=== PATIENT | female | born 1985 | race African-American/Black ===

== ENCOUNTER 2024-05-28 09:37 | Emergency (ER) | payer OTHER, SELFPAY ==
[2024-05-28 09:53] VITALS: BP 139/102
--- NOTE | 2024-05-28 09:54 | ED.GENMED ---
ED Provider Triage
<Venkatesh Pantoja PA-C - Last Filed: 05/28/24 09:56>
-
Patient seen by provider in Triage?: Seen in Triage
Attestation: A medical screening examination has been initiated by a qualified medical provider. Based on the assessment performed at this time, it has been determined that an emergent medical condition may exist and the patient has been informed
that further medical evaluation and possible additional diagnostic testing may be needed.
HPI: 39-year-old female G7, P2 presents the emergency department for evaluation of vaginal bleeding. She developed vaginal bleeding last month in her first trimester and was seen at [facility], per patient had an abnormal
by ultrasound and was given mifepristone intravaginally for abortive therapy. States she had small amount of bleeding and spotting for this next several weeks but over the past 24 hours has had increased bleeding with clots. He states
the bleeding is 'heavy' but is unable to quantify and is not currently using a pad or tampon. No abdominal pain
GENERAL: Alert , in no apparent distress
EYE: No visual abnormalities.
NECK: Trachea midline
ENT: No visible abnormalities.
LUNGS: No acute respiratory distress
NEUROLOGICAL: Alert and oriented
SKIN: Skin intact. No visible changes.
MUSCULOSKELETAL: Moving extremities normally
PSYCH: Normal and appropriate interaction.
A/P: Incomplete miscarriage/retained products of conception. Obtain labs and ultrasound as well as hCG levels
This is a medical evaluation conducted in person to initiate diagnostic evaluation and provide initial therapeutics. Please see further documentation by the treating clinician.
History of Present Illness
<Venkatesh Pantoja PA-C - Last Filed: 05/28/24 09:56>
General
Chief Complaint: Vaginal Bleeding
Time Seen by Provider: 05/28/24 11:16
<Yandel Allison DO - Last Filed: 05/29/24 12:07>
General
Source: patient
History of Present Illness
History of Present Illness:
39-year-old female presents to the emergency room complaining of heavy vaginal bleeding. Patient states that she had a positive test a few weeks ago. She began having some spotting which prompted a visit to the emergency room at
[place]. She had an ultrasound which did not show an intrauterine . She had a follow-up with BOILER TESTING TECHNICIAN at [place] where she was treated with intravaginal medication to promote miscarriage. Patient had some bleeding and some clots after
using that medication. She was continuing to spot up until yesterday when she again developed heavy vaginal bleeding. She was passing clots. This morning bleeding is heavier yet. She has some mild discomfort in her abdomen. Patient is G6, P2
with 2 elective abortions and 2 spontaneous abortions. Patient denies any fever.
Past History
<Venkatesh Pantoja PA-C - Last Filed: 05/28/24 09:56>
Past History
ED Past Medical History: Asthma
ED Past Surgical History: None
Social History
Tobacco: Smoker
Alcohol: None
Drug: None
Personal: Single
Living: with family
Employment: Employed
Phy Exam
<Yandel Allison DO - Last Filed: 05/29/24 12:07>
Physical Exam
Physical Exam:
General: Awake, Alert, Oriented X3. No acute distress.
Vitals: unremarkable
Head: Atraumatic
Eyes: Pupils equal, EOMI
Throat: Airway intact, no exudates
Neck: Trachea midline
Lungs: Clear and equal b/l
Heart: Regular rate, no murmurs
Abd: Soft, Nontender, No pulsatile mass
Neuro: Nonfocal
Skin: Warm, dry, no rash
Extremities: pulses equal b/l, no edema
Course
<Venkatesh Pantoja PA-C - Last Filed: 05/28/24 09:56>
Orders/Labs/Results
Orders:
Orders
05/28/24 09:53
Test Result ONCE
05/28/24 10:01
Beta HCG Quantitative Urgent
Comment: ADD
Complete Blood Count/With Diff Urgent
Comprehensive Metabolic Panel Urgent
HCG, Serum Qualitative Screen Urgent
05/28/24 10:34
Add On- LAB Urgent
Tests Added?: HCG QUANT
05/28/24 11:14
Add On- LAB Urgent
Tests Added?: quantitative hcg
05/28/24 11:40
US Pelvis W Transvag Combined Urgent
Reason For Exam: vag bleeding
05/28/24 12:21
Type+Screen Urgent
BBK Wristband Number:
05/28/24 15:08
ABO2 Routine
BBK Wristband Number:
Associate notified that ABO2 has been ordered: [id number]
Date: 05/28/24
Time: 12:50
Manager Utilization ID: [id number]
miSOPROStol [Cytotec] 600 mcg PO NOW STA
Abnormal Lab Results
05/28/24
10:01
RBC 4.16 L 10^6/uL
(4.20-5.40)
Hct 36.3 L %
(37.0-47.0)
Absolute Monos (auto) 1.0 H 10^3/uL
(0.1-0.6)
Monocytes % 11.5 H %
(1.7-9.3)
Eosinophils % 7.6 H %
(0-6)
Glucose 100 H mg/dl
(70-99)
05/28/24 10:01
05/28/24 10:01
Vital Signs
Initial and Last Documented VS:
Initial Vital Signs
Temp Pulse Resp BP Pulse Ox
98.4 F 98 20 139/102 99
05/28/24 09:53 05/28/24 09:53 05/28/24 09:53 05/28/24 09:53 05/28/24 09:53
Last Documented Vital Signs
Temp Pulse Resp BP Pulse Ox
98.4 F 83 16 114/72 100
05/28/24 09:53 05/28/24 15:12 05/28/24 15:12 05/28/24 15:12 05/28/24 15:12
Olgalt;Yandel Allison, DO - Last Filed: 05/29/24 12:07>
Orders/Labs/Results
Orders:
Orders
05/28/24 09:53
Test Result ONCE
05/28/24 10:01
Beta HCG Quantitative Urgent
Comment: ADD
Complete Blood Count/With Diff Urgent
Comprehensive Metabolic Panel Urgent
HCG, Serum Qualitative Screen Urgent
05/28/24 10:34
Add On- LAB Urgent
Tests Added?: HCG QUANT
05/28/24 11:14
Add On- LAB Urgent
Tests Added?: quantitative hcg
05/28/24 11:40
US Pelvis W Transvag Combined Urgent
Reason For Exam: vag bleeding
05/28/24 12:21
Type+Screen Urgent
BBK Wristband Number:
05/28/24 15:08
ABO2 Routine
BBK Wristband Number:
Associate notified that ABO2 has been ordered: [id number]
Date: 05/28/24
Time: 12:50
Manager Utilization ID: [id number]
miSOPROStol [Cytotec] 600 mcg PO NOW STA
Abnormal Lab Results
05/28/24
10:01
RBC 4.16 L 10^6/uL
(4.20-5.40)
Hct 36.3 L %
(37.0-47.0)
Absolute Monos (auto) 1.0 H 10^3/uL
(0.1-0.6)
Monocytes % 11.5 H %
(1.7-9.3)
Eosinophils % 7.6 H %
(0-6)
Glucose 100 H mg/dl
(70-99)
05/28/24 10:01
05/28/24 10:01
Vital Signs
Initial and Last Documented VS:
Initial Vital Signs
Temp Pulse Resp BP Pulse Ox
98.4 F 98 20 139/102 99
05/28/24 09:53 05/28/24 09:53 05/28/24 09:53 05/28/24 09:53 05/28/24 09:53
Last Documented Vital Signs
Temp Pulse Resp BP Pulse Ox
98.4 F 83 16 114/72 100
05/28/24 09:53 05/28/24 15:12 05/28/24 15:12 05/28/24 15:12 05/28/24 15:12
<Jose Sher, DO - Last Filed: 05/28/24 15:04>
Orders/Labs/Results
Orders:
Orders
05/28/24 09:53
Test Result ONCE
05/28/24 10:01
Beta HCG Quantitative Urgent
Comment: ADD
Complete Blood Count/With Diff Urgent
Comprehensive Metabolic Panel Urgent
HCG, Serum Qualitative Screen Urgent
05/28/24 10:34
Add On- LAB Urgent
Tests Added?: HCG QUANT
05/28/24 11:14
Add On- LAB Urgent
Tests Added?: quantitative hcg
05/28/24 11:40
US Pelvis W Transvag Combined Urgent
Reason For Exam: vag bleeding
05/28/24 12:21
Type+Screen Urgent
BBK Wristband Number:
05/28/24 15:08
ABO2 Routine
BBK Wristband Number:
Associate notified that ABO2 has been ordered: [id number]
Date: 05/28/24
Time: 12:50
Manager Utilization ID: [id number]
miSOPROStol [Cytotec] 600 mcg PO NOW STA
Abnormal Lab Results
05/28/24
10:01
RBC 4.16 L 10^6/uL
(4.20-5.40)
Hct 36.3 L %
(37.0-47.0)
Absolute Monos (auto) 1.0 H 10^3/uL
(0.1-0.6)
Monocytes % 11.5 H %
(1.7-9.3)
Eosinophils % 7.6 H %
(0-6)
Glucose 100 H mg/dl
(70-99)
05/28/24 10:01
05/28/24 10:01
Vital Signs
Initial and Last Documented VS:
Initial Vital Signs
Temp Pulse Resp BP Pulse Ox
98.4 F 98 20 139/102 99
05/28/24 09:53 05/28/24 09:53 05/28/24 09:53 05/28/24 09:53 05/28/24 09:53
Last Documented Vital Signs
Temp Pulse Resp BP Pulse Ox
98.4 F 83 16 114/72 100
05/28/24 09:53 05/28/24 15:12 05/28/24 15:12 05/28/24 15:12 05/28/24 15:12
<Yandel Allison, DO - Last Filed: 05/29/24 12:07>
MDM/Problems Addressed
Differential Diagnosis Includes:
ectopic, incomplete , retained products
MDM/Problems Addressed:
Patient presents with increased vaginal bleeding. Labs show that her quant is still quite elevated at thousand. Ultrasound showed thickened endometrial stripe. Consultation from gynecology obtained. Dr. Glasgow came and evaluated the patient.
Ultimately she used shared decision making and the patient decided to continue medical management. Patient given additional Cytotec and will be discharged home.
<Yandel Allison DO - Last Filed: 05/29/24 12:07>
*Radiology
Radiology exam reviewed: radiology read reviewed
*Pulse Oximetry
Patient hypoxic: no
<Jose Sher DO - Last Filed: 05/28/24 15:04>
*Critical Care Note
Total Time (30-74mins, 75-104mins- exclusive of procedures): Not Applicable
<Jose Sher DO - Last Filed: 05/28/24 15:04>
Update Note
Update Note:
Signout pending BOILER TESTING TECHNICIAN evaluation for retained products seen by multi skilled operator ordered Cytotec will follow-up with her primary multi skilled operator the ER if worsening symptoms
Patient blood type is O+
ED Attending Note
<Venkatesh Pantoja PA-C - Last Filed: 05/28/24 09:56>
-
Portions of this chart may have been created with voice recognition software.� Occasional wrong word or��sound alike� substitutions may have occurred due to the inherent limitations of voice recognition software.
Discharge Plan
Departure
Patient Disposition: Home (Routine Discharge)
Date of Disposition: 05/28/24
Time of Disposition: 15:02
Patient with high blood pressure during this ER visit?: No
Discharge Problem:
Retained products of conception, early
Instructions: Threatened Miscarriage (DC)
Prescriptions:
No Action
lidocaine 30 GM ointment
30 gm topical BID Qty: 1 0RF
Rx Instructions:
apply to area of irritation for 7 days
Referrals:
Sugey Adams DO [Family Provider] - Next open appointment
Activity Restrictions/Additional Instructions:
Follow-up with your multi skilled operator in a week
Interventions
Interventions:
*Risk Screen - Suicide Last Done: 05/28/24 09:53
*General Assessment Last Done: 05/28/24 11:58
*Neglect/Abuse Screening Last Done: 05/28/24 11:58
ED- Fall Risk Assessment Last Done: 05/28/24 15:36
*ED COVID-19 Vaccine History Last Done: 05/28/24 11:58
*Nursing Disposition Last Done: 05/28/24 15:36
ED-Female Genitourinary Assessment Last Done: 05/28/24 12:01
Discharge Date and Time
Discharge Date/Time: 05/28/24 15:37
Print Language: [place] CITIZEN
[2024-05-28 10:15] LABS: % Basophils 0.8 % (0-2); % Eosinophils 7.6 % (0-6); % Immature Granulocytes 0.2 % (0-0.5); % Lymphocytes 30.1 % (20.5-51.1); % Monocytes 11.5 % (1.7-9.3); % Neutrophils 49.8 % (42.2-75.2); Absolute Basophils 0.1 10^3/uL (0-0.2); Absolute Eosinophils 0.7 10^3/uL (0-0.7); Absolute Lymphocytes 2.6 10^3/uL (1.2-3.4); Absolute Neutrophils 4.3 10^3/uL (1.4-6.5); Hematocrit 36.3 % (37.0-47.0); Hemoglobin 12.2 g/dL (12.0-16.0); Mean Corp Hgb Conc. 33.6 g/dL (33.0-37.0); Mean Corpuscular Hgb 29.3 pg (27.0-31.0); Mean Corpuscular Volume 87.3 fL (81.0-99.0); Mean Platelet Volume 9.5 fL (7.4-10.4); Nucleated Red Blood Cells % 0 %; Platelet Count 304 10^3/uL (130-400); Red Blood Cell Count 4.16 10^6/uL (4.20-5.40); Red Cell Dist. Width 12.1 % (11.5-14.5); White Blood Cell Count 8.7 10^3/uL (4.8-10.8)
[2024-05-28 10:24] LABS: HCG, Serum Qualitative Screen Positive
[2024-05-28 10:26] LABS: ALT (SGPT) 22 U/L (0-35); AST (SGOT) 28 U/L (14-36); Albumin 4.5 g/dl (3.5-5.0); Alkaline Phosphatase 53 U/L (38-126); Blood Urea Nitrogen 7 mg/dl (7-17); Calcium 9.7 mg/dl (8.4-10.2); Carbon Dioxide 23 mmol/L (22-30); Chloride 103 mmol/L (98-107); Glucose 100 mg/dl (70-99); Potassium 4.4 mmol/L (3.5-5.1); Sodium 139 mmol/L (135-145); Total Bilirubin 0.5 mg/dl (0.2-1.3); Total Protein 7.1 g/dl (6.3-8.2); eGFR > 60.00
[2024-05-28 11:56] VITALS: BMI 34.6
[2024-05-28 11:59] VITALS: BP 112/69
--- NOTE | 2024-05-28 12:05 | EDRN ---
Attempted ABO RH blood and IV w/out success. IV VAT RN paged and not able to come for a bit.
[2024-05-28 13:39] VITALS: BP 102/69
[2024-05-28 14:00] VITALS: BP 113/71
--- NOTE | 2024-05-28 14:38 | EDRN ---
Dr. Glasgow CASE HARDENER here to see pt at this time.
[2024-05-28 15:12] VITALS: BP 114/72
[2024-05-28] MEDS: CYTOTEC 600 MCG PO (15:14)
--- NOTE | 2024-05-28 15:33 | CON.MD ---
Consultation - Medical
-
Consult: retained products of conception
HPI: Patient is a 39yo presented to the ED with complaints of vaginal bleeding. Patient was seen at the [place] ED on 05/04 for vaginal spotting and US at that time revealed a gestational sac with a yolk sac with no pole. It was
recommended to follow up in 7 days for repeat ultrasound. Patient went to the ED on 05/10 for follow and states that she was diagnosed with a failed . She was given 200mcg of Cytotec vaginally and then given 200mcg to take at home orally.
She never took the second dose because she started bleeding after the first dose. She says she passed one small clot and had bleeding less than a period. She then had spotting until yesterday. Yesterday, she started having bleeding like a period
with passage of clots about the size of golf balls. Today she says her bleeding has improved and has had passage of smaller clots about the size of a quarter. She did have a large gush of blood this morning. Currently, the bleeding is light. She has
not been wearing a pad and has only been putting tissue in her underwear. She has not soaked through anything. She denies dizziness, lightheadedness, chest pain, or shortness of breath.
ROS negative unless otherwise noted in the HPI
OBHx:
SVDx2, ETOPx2, SABx1
Gynhx: LMP /, regular monthly periods, denies hx of STDs or abnormal Pap smears, sees TARIFF CLERK at [place]
PMHx: asthma
Meds: combivent
Surghx: D&Ex2
Social: previous tobacco use, denies etoh or illicit drug use
Famhx: mom w/ breast cancer
O:
VSS BP 114/72, HR 83, RR 16, Temp 98.4
General: well appearing, no acute distress
Cardio: regular
Pulm: no increased work of breathing
Abd: soft, non tender
: normal appearing external genitalia, minimal blood in the vaginal vault with no active bleeding from the cervix with valsalva, cervix visually closed
Psych: appropriate affect
Pelvic US: The endometrial stripe is thickened and heterogeneous. It measures 2.6 cm in thickness towards the fundus. There is mild associated blood flow to abnormal endometrium raising concern for retained products of conception
Labs: H/H 12.2/36.3, Blood type O+
A/P: Patient is a 39yo with retained products of conception
- Pelvic US revealed the endometrial stripe is thickened and heterogeneous. It measures 2.6 cm in thickness towards the fundus. There is mild associated blood flow to abnormal endometrium raising concern for retained products of conception
- Discussed with patient findings of retained products of conception. At this time patient is hemodynamically stable and hemoglobin is stable at 12.2. She previously received 200mcg of Cytotec vaginally at [place] on 05/10. Since patient is
hemodynamically stable with no signs of heavy vaginal bleeding, discussed expectant management vs medical management with another dose of Cytotec or surgical intervention with suction D&C. Risks, benefits, and alternatives to each were discussed and
patient wishes to proceed with medical management. She is aware that it might not work and she might need a suction D&C in the future.
- 600mcg of Cytotec given buccally to patient in ED
- She can take ibuprofen as needed for cramping. She is aware she will likely have increased bleeding with passage of some clots after taking the Cytotec
- Blood type: O+, no indication for RhoGAM
- Strict ED return precautions were given including heavy vaginal bleeding (soaking through a pad per hour for more than an hour) and s/sx of anemia
- She was instructed to follow up with her TARIFF CLERK to trend bHCG and potential repeat US to evaluate for retained products of conception
30 minutes spent with patient, reviewing the chart, and documentation
== END 2024-05-28 15:37 | disposition home or self-care (01) ==
LOC: EMR 09:37
PROVIDERS: Physician Assistant; EMERGENCY PHYSICIAN Emergency Medicine; FAMILY PHYSICIAN Obstetrics & Gynecology; OTHER PHYSICIAN Student in an Organized Health Care Education/Training Program
DX: O03.4 Incomplete spontaneous abortion without complication (principal); F17.200 Nicotine dependence, unspecified, uncomplicated
CPT/HCPCS: 99284; 76830; 76856; 80053; 84702; 84703; 85025; 86850; 86900; 86901